=== PATIENT | female | born 1985 | race Caucasian/White ===

== ENCOUNTER 2016-10-17 16:58 | Emergency (ER) | payer OTHER ==
[~2016-10-17] VITALS: Ht 165.1 cm; Wt 59.5 kg
[~2016-10-17 16:58] MED LIST: CLON1TAB3 PO; FLUO40CA8 PO; LEVE750T PO; NRN/600 PO
[2016-10-17 17:07] VITALS: TEMP 36.5; Ht 165.1 cm; Wt 59.5 kg
[2016-10-17 17:23] LABS: URINE APPEARANCE TURBID (CLEAR); URINE BILIRUBIN NEG (NEG); URINE COLOR DK YELLOW; URINE NITRITE NEG (NEG); URINE PH 7.5 (4.5-7.5); URINE SPECIFIC GRAVITY 1.032 (1.000-1.030); UROBILINOGEN NEG (NEG); ZZUR CULT IF INDIC CLEAN CATCH YES
--- NOTE | 2016-10-17 17:35 | EMERGENCY ROOM VISIT NOTE ---
History First contact with patient: 17:20 Chief Complaint: VAGINAL DISCHARGE Stated Complaint: VAGINAL PROBLEMS, ABD PAIN, NAUSEA History of Present Illness The patient is a 31 year old female who presents to the Emergency Room with complaints of vaginal discharge. The patient states that she had unprotected intercourse approximately 3.5 weeks ago. The patient states that 2 weeks ago she developed copious amounts of yellow foul-smelling vaginal discharge. She states she also has sores on her skin that are itchy and painful. She states that she has some discomfort in the lower abdomen. The patient has a history of hepatitis C. She has a history of Trichomonas and PID. The patient also has a history of heroin abuse and is on Suboxone. The patient rates her discomfort a 7/10. She denies any fevers. She denies any vomiting. Review of Systems A 10 system review of systems was completed with positives and pertinent negatives listed in the HPI. Past Medical/Surgical History Medical Problems: (1) Acute sinusitis (2) Anxiety (3) Benzodiazepine abuse (4) Bipolar disorder (5) Chlamydia infection (6) Depression (7) Heroin abuse (8) Left wrist pain (9) Recurrent sinus infections (10) Seizures (11) Vaginal trichomoniasis Family History FH: HTN (hypertension) FH: cancer FH: heart disease Kidney disease Kidney stones Seizures Social History Smoking Status: Current Every Day Smoker Alcohol Use: none Drug Use: heroin Housing Status: lives with family Occupation Status: unemployed Current/Historical Medications Scheduled Buprenorphine Hcl-Naloxone Hcl (Suboxone 8-2 Mg), 1 EA SL DAILY Bupropion (Wellbutrin Sr), 150 MG PO BID Doxycycline Hyclate (Vibramycin), 100 MG PO BID Gabapentin (Neurontin), 800 MG PO QID Levetiracetam (Keppra), 750 MG PO BID Metronidazole (Flagyl), 500 MG PO BID Sertraline (Zoloft), 100 MG PO DAILY Valacyclovir Hcl (Valtrex), 1,000 MG PO BID Scheduled PRN Clonazepam (Klonopin), 1 MG PO TID PRN for Anxiety/Agitation Physical Exam Vital Signs Date Time Temp Pulse Resp B/P (MAP) Pulse Ox O2 Delivery O2 Flow Rate FiO2 10/17/16 19:49 80 22 120/76 99 10/17/16 17:07 36.5 80 16 118/80 96 Room Air Physical Exam VITALS: Vitals are noted on the nurse's note and reviewed by myself. Vital signs stable. GENERAL: This is a 31-year-old female, in no acute distress, nondiaphoretic, well-developed well-nourished. SKIN: The skin was without rashes, erythema, edema, or bruising. There is no tenting of the skin. Capillary reflex less than 2 seconds. HEAD: Normocephalic atraumatic. EARS: The external ears are normal in appearance. EYES: Pupils equal round and reactive to light and accommodation. Conjunctivae without injection, sclerae without icterus. Extraocular movements intact. NOSE: Patent, turbinates without inflammation or discharge. MOUTH: Mucous membranes moist. Tonsils are not enlarged. Pharynx without erythema or exudate. Uvula midline. Airway patent. Tongue does not deviate. NECK: Supple without nuchal rigidity. No lymphadenopathy. No thyromegaly. Cervical spine is nontender. No JVD. HEART: Regular rate and rhythm without murmurs gallops or rubs. LUNGS: Clear to auscultation bilaterally without wheezes, rales or rhonchi. No retractions or accessory muscle use. ABDOMEN: Positive bowel sounds x 4. Soft, mild tenderness over the bladder and midline. Without masses or organomegaly. Epps sign negative.. : There are several vesicular lesions in the perirectal area. The lesions are tender to palpation. Viral culture was obtained. The patient has a copious amount of yellow vaginal discharge. The cervix is irritated and friable. Cultures were obtained. The patient does have left adnexal tenderness and cervical motion tenderness. There is no obvious mass. MUSCULOSKELETAL: No muscle atrophy, erythema, or edema noted. Full range of motion in all extremities. Normal gait. Strength 5/5 throughout. NEURO: Patient was alert and oriented to person place and time. No focal neurological deficits. Medical Decision & Procedures Laboratory Results Test 10/17/16 17:05 10/17/16 17:55 Urine Color DK YELLOW Urine Appearance TURBID (CLEAR) Urine pH 7.5 (4.5-7.5) Urine Specific Hendrix 1.032 (1.000-1.030) Urine Protein 2+ (NEG) Urine Glucose (UA) NEG (NEG) Urine Ketones NEG (NEG) Urine Occult Blood 1+ (NEG) Urine Nitrite NEG (NEG) Urine Bilirubin NEG (NEG) Urine Urobilinogen NEG (NEG) Urine Leukocyte Esterase LARGE (NEG) Urine WBC (Auto) /hpf (0-5) Urine RBC (Auto) /hpf (0-4) Urine Hyaline Casts (Auto) /lpf (0-5) Urine Epithelial Cells (Auto) /lpf (0-5) Urine Bacteria (Auto) (NEG) Urine RBC 5-10 /hpf (0-4) Urine WBC >30 /hpf (0-5) Urine Epithelial Cells >30 /lpf (0-5) Urine Bacteria 2+ (NEG) Urine Trichomonas PRESENT (NONE PRSENT) Urine Yeast (Auto) (NONE PRSENT) Urine Test NEG (NEG) Date/Time Source Procedure Growth Status 10/17/16 17:55 Vaginal Swab Trichomonas Preparation - Final Complete Medications Administered Medications (Trade) Dose Ordered Sig/Celestino Route Start Time Stop Time Status Last Admin Dose Admin Ceftriaxone Sodium (Rocephin Im) 250 mg NOW STAT IM 10/17/16 17:56 10/17/16 17:58 DC 10/17/16 19:41 250 MG Doxycycline Hyclate (Vibramycin Cap) 100 mg ONE ONCE PO 10/17/16 18:00 10/17/16 18:02 DC 10/17/16 19:39 100 MG Valacyclovir HCl (Valtrex Tab) 1,000 mg NOW ONCE PO 10/17/16 18:00 10/17/16 18:02 DC 10/17/16 19:40 1,000 MG Metronidazole (Flagyl Tab) 500 mg NOW STAT PO 10/17/16 18:02 10/17/16 18:03 DC 10/17/16 18:02 500 MG ECG Indication: palpitations Rate (beats per minute): 75 Rhythm: normal sinus Findings: no acute ischemic change Comparison ECG Date: no prior available ED Course The patient was seen and examined. Previous visits were reviewed. The patient does not have a fever. The patient has had recent unprotected intercourse. The patient has had significant foul-smelling yellow discharge from her vagina as well as several tender lesions. I suspect that the patient has herpes. Pelvic cultures were obtained. Trichomonas was seen on the Trichomonas culture as well as the urinalysis. The patient will be treated for herpes, Trichomonas , PID, gonorrhea/chlamydia. Incidentally, the patient states she has been having some anxiety and feels occasional chest palpitations. She reports a history of prolonged QT. EKG reveals a normal sinus rhythm. The patient is encouraged to contact the emergency department to get the results of her cultures. She should return with any worsening symptoms. Medical Decision DIFFERENTIAL DIAGNOSIS: Pelvic inflammatory disease, ovarian cyst, ovarian torsion, ovarian rupture, , ectopic , endometriosis, endometritis, urinary tract infection, ruptured ovarian cyst, tubo-ovarian abscess, among others. Medication Reconcilliation Current Medication List: was personally reviewed by me Blood Pressure Screening Patient's blood pressure: Normal blood pressure Blood pressure disposition: Did not require urgent referral Impression Primary Impression: Vaginal trichomoniasis Additional Impressions: Herpes Vaginal discharge Departure Information Dispostion Home / Self-Care Condition GOOD Prescriptions Valacyclovir Hcl (VALTREX) 1 Gm Tab 1000 MG PO BID for 7 Days, #14 TAB Prov: Ayesha Miramontes PA-C 10/17/16 Metronidazole (Flagyl) 500 Mg Tab 500 MG PO BID for 7 Days, #14 TAB Prov: Ayesha Miramontes PA-C 10/17/16 Doxycycline Hyclate (VIBRAMYCIN) 100 Mg Cap 100 MG PO BID for 14 Days, #28 CAP Prov: Ayesha Miramontes PA-C 10/17/16 Referrals No Doctor, Assigned (PCP) Patient Instructions [facility], Trichomonas Vaginalis Discharge Additional Instructions You may contact the emergency department [phone] to check on the results of the cultures in 5-7 days The Valtrex is to treat for potential herpes Metronidazole is to treat the Trichomonas; do not drink alcohol when taking the metronidazole as it will cause projectile vomiting The doxycycline is to treat for pelvic inflammatory disease Follow-up with [facility] for further evaluation and management Return to the ER with any worsening symptoms Problem Qualifiers
[2016-10-17 17:39] LABS: SULFASALICYLIC ACID POS (NEG)
[2016-10-17] MEDS ORDERED: SERT-234 PO (17:43)
[2016-10-17] MEDS ORDERED: BUPR-79 PO (17:43)
[2016-10-17] MEDS ORDERED: LEVE750T PO (17:43)
[2016-10-17] MEDS ORDERED: GABA800T PO (17:43)
[2016-10-17] MEDS ORDERED: BUPR8MIS SL (17:43)
[2016-10-17] MEDS ORDERED: CLON1TAB3 PO (17:45)
[2016-10-17 17:52] LABS: MANUAL MICROSCOPIC REQUIRED? YES; REVIEW REQ? NO
[2016-10-17 17:53] LABS: URINE TRICHOMONAS PRESENT (NONE PRSENT); URINE WBC >30 /hpf (0-5)
[2016-10-17 17:55] LABS: URINE BACTERIA 2+ (NEG)
[2016-10-17] MEDS ORDERED: CEFTRIAXONE SOD 350MG/ML 1 GM VIAL IM STA (17:56)
[2016-10-17] MEDS ORDERED: DOXYCYCLINE HYCLATE 100 MG CAP PO ONE (18:00)
[2016-10-17] MEDS ORDERED: METRONIDAZOLE 250 MG TAB PO STA (18:02)
[2016-10-17] MEDS ORDERED: METR-163 PO (18:48)
[2016-10-17] MEDS ORDERED: DOXY100C PO (18:48)
[2016-10-17] MEDS ORDERED: VALA1TAB2 PO (18:50)
[2016-10-17 19:49] VITALS: BP 120/76; PULSE 80; O2SAT 99
[2016-10-20 00:38] LABS: CHLAMYDIA TRACH RNA*** NOT DETECTED (NOT DETECTED); GC (NEIS GONORRHOEAE)RNA** NOT DETECTED (NOT DETECTED)
[2016-10-20 10:55] LABS: HERPES SIMPLEX CULT SOURCE GENITAL-VAGINAL; HERPES SIMPLEX VIRUS CULT ISOLATED (NOT ISOLATED)
[2016-10-23 10:48] LABS: HSVTYPE2REFLEX ONLY!DON'T ORDR ISOLATED (NOT ISOLATED)
== END 2016-10-17 19:51 | disposition home or self-care (01) ==
LOC: C.EDB 17:00 → C.EDD 19:51
DX: A59.01 Trichomonal vulvovaginitis (principal); B00.9 Herpesviral infection, unspecified; N89.8 Other specified noninflammatory disorders of vagina; F41.9 Anxiety disorder, unspecified; F31.9 Bipolar disorder, unspecified; F32.9 Major depressive disorder, single episode, unspecified; R56.9 Unspecified convulsions; F11.20 Opioid dependence, uncomplicated; Z82.49 Family history of ischemic heart disease and other diseases of the circulatory system; Z82.0 Family history of epilepsy and other diseases of the nervous system; F17.200 Nicotine dependence, unspecified, uncomplicated